=== PATIENT | female | born 1970 | race Caucasian/White ===

== ENCOUNTER 2020-11-21 15:25 | Outpatient (CLI) | payer OTHER | END 2020-11-21 15:26 | disposition home or self-care (01) | LOC: NAV RAD 15:25 | PROVIDERS: ATTEND Nurse Practitioner Adult Health | DX: M54.6 Pain in thoracic spine (principal); M47.814 Spondylosis without myelopathy or radiculopathy, thoracic region | CPT/HCPCS: 72072 ==